=== PATIENT | female | born 1955 | race Asian ===

== ENCOUNTER 2017-05-15 10:36 | Emergency (ER) | payer OTHER ==
[~2017-05-15] VITALS: Ht 157.5 cm; Wt 68.2 kg
[2017-05-15] MEDS ORDERED: INSLAN SQ (10:42)
[2017-05-15] MEDS ORDERED: INSULIN SQ (10:42)
[2017-05-15] MEDS ORDERED: ATOR40TA28 PO (10:42)
[2017-05-15] MEDS ORDERED: SPIR50 PO (10:42)
[2017-05-15] MEDS ORDERED: ASPI81 PO (10:42)
[2017-05-15] MEDS ORDERED: METO25 PO (10:42)
[2017-05-15] MEDS ORDERED: FENO54TA5 PO (10:42)
[2017-05-15] MEDS ORDERED: IBUPROFEN 600 MG TABLET PO ONE (11:30)
[2017-05-15 12:20] LABS: BASOPHILS % (AUTO) 0.4 % (0.0-2.0); HEMATOCRIT 35.4 % (36-46); HEMOGLOBIN 11.2 g/dL (12.0-16.0); LYMPHOCYTES # (AUTO) 1.4 K/uL (1.0-4.8); LYMPHOCYTES % (AUTO) 14.9 % (22.0-44.0); MEAN CORPUSCULAR HEMOGLOBIN 20.7 pg (26.0-34.0); MEAN CORPUSCULAR HGB CONC 31.5 G/dL (31.0-37.0); MEAN CORPUSCULAR VOLUME 66 fL (80-100); MONOCYTES # (AUTO) 0.5 K/uL (0.1-1.0); MONOCYTES % (AUTO) 5.5 % (2.0-9.0); NEUTROPHILS # (AUTO) 7.3 K/uL (1.8-7.7); NEUTROPHILS % (AUTO) 78.2 % (40.0-70.0); PLATELET COUNT (AUTO) 352 K/uL (150-450); RED BLOOD CELL COUNT(AUTO) 5.38 MIL/uL (4.00-5.20); RED CELL DISTRIBUTION WIDTH 15.1 % (11.5-14.5); WHITE BLOOD COUNT (AUTO) 9.4 K/uL (4.5-11.0)
[2017-05-15 12:35] LABS: CALCIUM, TOTAL 9.7 mg/dL (8.8-10.5); CREATININE 1.92 mg/dL (0.60-1.30)
[2017-05-15 13:25] VITALS: BP 135/70
== END 2017-05-15 13:50 | disposition home or self-care (01) ==
LOC: EMS 10:38
DX: M79.672 Pain in left foot (principal); F17.210 Nicotine dependence, cigarettes, uncomplicated; E11.9 Type 2 diabetes mellitus without complications; E78.00 Pure hypercholesterolemia, unspecified; I10 Essential (primary) hypertension; Z79.4 Long term (current) use of insulin; Z79.82 Long term (current) use of aspirin; Z90.710 Acquired absence of both cervix and uterus
CPT/HCPCS: 82962; 99285